=== PATIENT | female | born 1980 | race Caucasian/White ===

== ENCOUNTER 2021-08-14 09:53 | Emergency (ER) | payer MEDICARE, MEDICAID, SELFPAY ==
[2021-08-14 09:57] VITALS: BP 131/75; PULSE 80; RESP 18; TEMP 36.6; O2SAT 98
--- NOTE | 2021-08-14 10:09 | W.ED.GENAD ---
Discharge Plan Disposition Patient Disposition: HOME Condition: Stable Discharge Details Clinical Impression: Laceration of hand, right Primary Care Provider: Alondra Hernandez ED Provider: Karey Singer Home Meds and New Rx's Prescriptions: No Action loratadine [Claritin Liqui-Gel] 10 MG capsule 10 mg PO PRN PRNRF: 0 multivitamin [Daily Multi-Vitamin] 1 EACH tablet 1 tab PO DAILY RF: 0 Discharge Instructions Instructions: Laceration (ED), Skin Adhesive Care (ED) Additional Instructions: Please keep clean and dry. After 12 to 24 hours you may wash under running soap and water. Watch for signs of infection including increased redness, swelling, drainage, red streaks going up the hand. Please take Tylenol or Ibuprofen with food every 4-6 hours as needed for pain and swelling. Follow up with primary care provider in 3-5 days. Return to ED sooner if any worsening or concerns. Increase oral fluids. Stand Alone Forms: Work Release Referrals: Alondra Hernandez [Primary Care Provider] - Return if symptoms worsen Discharge Data Discharge Date/Time-TO BE ENTERED AT DEPARTURE: 08/14/21 10:59 Medical Decision Making 41-year-old female presents to the ER chief complaint of right hand laceration. She reports prior to arrival she was getting a plastic wrap container down and cut the inner webbing between her third and fourth digits on the serrated edge. 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 Bleeding is controlled with pressure upon arrival. Full range of motion noted to the hand and digits. Distal circulation sensation and movement intact. Cap refill less than 2 seconds. She does have a past medical history of mild MR. No known drug allergies. She was recently diagnosed with pneumonia 2 weeks ago was taking azithromycin which she completed. She has no other associated symptoms no cough no shortness of breath. Last tetanus on file 2011. We will give her one here. Tdap was given by staffing director in department. Wound care was performed by myself with chlorhexidine and sterile normal saline. Wound was irrigated. Please see procedure note above. Wound was closed with tissue adhesive wound was well approximated dressing applied. Discussed home care with patient and mother who verbalized understanding also discussed red flags and strict return instructions to return for any signs of infection red streaks or drainage. Instructed to follow-up with primary care provider if needed. HPI General Mode of arrival: ambulatory. Date/Time Provider Initiated Documentation: 08/14/21 09:54. Limitations to Documentation: no limitations. Information obtained by: patient, family, RN notes reviewed and old records reviewed. HPI Narrative: 41-year-old female presents to the ER chief complaint of right hand laceration. She reports prior to arrival she was getting a plastic wrap container down and cut the inner webbing between her third and fourth digits on the serrated edge. 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 Bleeding is controlled with pressure upon arrival. Full range of motion noted to the hand and digits. Distal circulation sensation and movement intact. Cap refill less than 2 seconds. She does have a past medical history of mild MR. No known drug allergies. She was recently diagnosed with pneumonia 2 weeks ago was taking azithromycin which she completed. She has no other associated symptoms no cough no shortness of breath. Last tetanus on file 2011. We will give her one here. Related Data Home Medications Medication Instructions Recorded Confirmed loratadine [Claritin] 10 mg PO PRN PRN 01/27/13 08/14/21 multivitamin [Multi-Vitamin Daily] 1 tab PO DAILY 01/27/13 08/14/21 Allergies Allergy/AdvReac Type Severity Reaction Status Date / Time No Known Allergies Allergy Unverified 08/14/21 10:00 General Stated Complaint: Laceration SALINA: 4 Review of Systems All systems reviewed & are unremarkable except as noted in HPI and below Integumentary/Breasts Skin/Breast: Reports as per HPI and Reports wounds PFSH Social History Smoking/Tobacco Use Status: Never Smoking risk assessment performed?: Yes Alcohol Intake: current Alcohol Intake frequency: 0-2 drinks per day Alcohol type: other Drug use: Never Substance use type: does not use Do you feel safe at home: Yes Do you feel safe in your relationship?: Yes Exam Extrem Hand/finger images: 1. 0.5 cm laceration Course Vital Signs Vital signs: Vital Signs Temperature 36.6 C 08/14/21 09:57 Pulse 80 08/14/21 09:57 Respiratory Rate 18 08/14/21 09:57 Blood Pressure 131/75 08/14/21 09:57 Pulse Oximetry 98 08/14/21 09:57 Temperature 36.6 C 08/14/21 09:57 Temperature Source Temporal Artery Scan 08/14/21 09:57 Pulse 80 08/14/21 09:57 Respiratory Rate 18 08/14/21 09:57 Respiratory Effort Non-Labored 08/14/21 10:01 Blood Pressure 131/75 08/14/21 09:57 Blood Pressure Position Sitting 08/14/21 09:57 Pulse Oximetry 98 08/14/21 09:57 Oxygen Delivery Method Room Air 08/14/21 09:57 Oxygen Flow Rate 0 08/14/21 09:57 Pain Level 10 08/14/21 09:57 Procedures Laceration Laceration 1: Site: hand Side (If applicable): right Size (cm): 0.5 Description: irregular and clean Depth: simple, single layer and involves tendon Pre-repair: wound explored and irrigated extensively Skin layer closed with: other (Tissue adhesive)
== END 2021-08-14 10:59 | disposition home or self-care (01) ==
PROVIDERS: Emergency Provider Registered Nurse Emergency; PCP Registered Nurse
DX: S61.411A Laceration without foreign body of right hand, initial encounter (principal); W26.8XXA Contact with other sharp object(s), not elsewhere classified, initial encounter
CPT/HCPCS: 12001; 90471

== ENCOUNTER 2022-02-08 02:17 | Outpatient (CLI) | payer MEDICARE, MEDICAID, SELFPAY ==
--- NOTE | 2022-02-08 | DI.MAMMO_ITS ---
Exam(s) MAMMO SCREENING EXAM: MAMMO SCREENING CLINICAL HISTORY: SCREENING FOR BREAST CANCER Z12.31 TECHNIQUE: Mammograms were interpreted according to the usual protocol including computer analysis w [employer] CAD system, tomosynthesis and C-view imaging. COMPARISON: No exams were available for comparison FINDINGS: The breasts are composed of scattered fibroglandular densities, Breast Density category B. No suspicious masses or suspicious microcalcifications are seen. No skin thickening or abnormal axillary lymph nodes are seen. IMPRESSION: BI-RADS Category 1, Negative mammogram Yearly screening mammography is recommended. Breast Density - Category B, scattered fibroglandular densities. A negative radiographic report should not delay biopsy if a dominant or clinically suspicious mass is present. Up to ten percent of cancers are not identified on mammography. A negative report may reinforce clinical impression. Adenosis and dense breasts may obscure an underlying neoplasm. False positive reports average 6 to 10%. Patient will receive a letter notifying them of these results.
== END 2022-02-08 02:37 ==
PROVIDERS: PCP Registered Nurse; Visit Provider Registered Nurse
DX: Z12.31 Encounter for screening mammogram for malignant neoplasm of breast (principal)
CPT/HCPCS: 77063; 77067

== ENCOUNTER 2025-05-21 00:18 | Outpatient (CLI) | payer MEDICARE, MEDICAID, SELFPAY ==
--- NOTE | 2025-05-21 12:35 | DI.MAMMO_ITS ---
Exam(s) MAMMO SCREENING EXAM: MAMMO SCREENING CLINICAL HISTORY: screening Z12.31. TECHNIQUE: Bilateral full field digital CC and MLO mammographic images were obtained with 3D tomosynthesis and utilizing computer aided detection (CAD). COMPARISON: Prior baseline mammogram of January 2022 was reviewed. FINDINGS: There has been no significant change in the appearance and distribution of the fibroglandular tissue. Benign-appearing lymph node in the upper quadrant of the left breast is unchanged. There are no new spiculated masses nor malignant appearing microcalcification groups. There is no significant architectural distortion nor skin thickening-retraction. IMPRESSION: No radiographic evidence of malignancy. BI-RADS Category 1 - Negative Breast Density - Category B - There are scattered areas of fibroglandular density. Breast density Category C or D implies that the patient has dense breast tissue. Dense breast tissue can make it harder to find cancer on a mammogram. Dense breast tissue is also associated with an increased risk of breast cancer. This information about the result of the mammogram report was provided to the patient to raise their awareness. Use this report when you speak with the patient about their risks for breast cancer, which includes their family history. At that time, you may recommend additional screening tests (Ultrasound or MRI) as these tests may add significant information. A negative radiographic report should not delay biopsy if a dominant or clinically suspicious mass is present. Up to ten percent of cancers are not identified on mammography. A negative report may reinforce clinical impression. Adenosis and dense breasts may obscure an underlying neoplasm. False positive reports average 6 to 10%. Patient will receive a letter notifying them of these results.
== END 2025-05-21 00:38 ==
PROVIDERS: PCP Registered Nurse; Visit Provider Registered Nurse
DX: Z12.31 Encounter for screening mammogram for malignant neoplasm of breast (principal); R92.323 Mammographic fibroglandular density, bilateral breasts
CPT/HCPCS: 77063; 77067